=== PATIENT | female | born 1950 | race Caucasian/White ===

== ENCOUNTER 2018-05-07 16:05 | Emergency (ER) | payer OTHER ==
[~2018-05-07] VITALS: Ht 172.7 cm; Wt 77.1 kg
[2018-05-07] MEDS ORDERED: CELEXA20 MG PO (16:19)
[2018-05-07] MEDS ORDERED: NEURONTIN 300300 M1 PO (16:52)
[2018-05-07 16:55] LABS: ABSOLUTE NEUTROPHILS 4.3 thou/uL (1.4-8.2); BASOPHILS 0.6 % (0.0-2.0); EOSINOPHILS 2.6 % (0.0-3.0); HEMATOCRIT 38.5 % (37.0-47.0); HEMOGLOBIN 13.2 gm/dL (12.0-15.0); LYMPHOCYTES 19.9 % (24.0-44.0); MCH 32.4 pg (26.0-34.0); MCHC 34.2 g/dL (28.0-37.0); MCV 94.7 fL (80.0-100.0); MONOCYTES 7.9 % (1.0-8.0); RBC 4.07 mil/uL (4.20-5.00); RDW 14.2 % (10.5-14.5); WBC 6.2 thou/uL (4.0-11.0)
[2018-05-07 17:00] LABS: ANION GAP 10 mmol/L (7-16); BUN 15 mg/dL (7-18); CALCIUM 9.2 mg/dL (8.5-10.1); CHLORIDE 102 mmol/L (98-107); CO2 25 mmol/L (21-32); CREATININE 0.7 mg/dL (0.6-1.0); GLUCOSE 99 mg/dL (74-106); POTASSIUM 3.8 mmol/L (3.5-5.1); SODIUM 137 mmol/L (136-145)
[2018-05-07 17:08] LABS: ALBUMIN 3.7 g/dL (3.4-5.0); MAGNESIUM 2.1 mg/dL (1.8-2.4); SGOT 20 U/L (15-37); SGPT 12 U/L (30-65); TOTAL BILIRUBIN 0.6 mg/dL (<0.1-1.0); TOTAL PROTEIN 7.6 g/dL (6.4-8.2); TROPONIN-I <0.06 ng/mL (<0.06)
--- NOTE | 2018-05-07 17:18 | EKG ---
[address] [place] [address] ELECTROCARDIOGRAM REPORT Name: CARLO ORTEGA [facility] [id number] Admission: 05/07/18 Attend Phys: Discharge: Date of : 48 Report #: [id number] THIS REPORT FOR: //name// [facility] ED Test Date: 2018-05-07 Test Time: 16:36:01 Pat Name: CARLO ORTEGA Department: Room: Gender: F [employer]: HASMUKH : 1950 Requested By: Jair Disla Order Number: [id number] MD: Memo Dukes Measurements Intervals Barnes Rate: 55 P: 28 NE: 151 QRS: 5 QRSD: 123 T: 28 QT: 472 QTc: 452 Interpretive Statements Sinus rhythm Atrial premature complex Nonspecific intraventricular conduction delay No previous ECG available for comparison Electronically Signed On 05-07-2018 17:18:03 DRAW HAND by Memo Dukes [email or web address] <ELECTRONICALLY SIGNED> By: Memo Dukes MD 05/07/18 1718 1636 1636 Memo Dukes MD /GIAN
[2018-05-07 17:28] LABS: PLATELET COUNT 125 thou/uL (150-400)
[2018-05-07 17:29] LABS: LARGE PLATELETS FEW
[2018-05-07] MEDS ORDERED: ZOFRAN ODT4 MG DISSOLVE (17:44)
[2018-05-07 17:57] VITALS: BP 134/68
[2018-05-07 18:04] LABS: URINE BILIRUBIN NEGATIVE (Negative); URINE BLOOD NEGATIVE (Negative); URINE CLARITY CLEAR; URINE COLOR YELLOW; URINE GLUCOSE-RANDOM* NEGATIVE (Negative); URINE KETONES NEGATIVE (Negative); URINE LEUKOCYTES NEGATIVE (Negative); URINE NITRITE NEGATIVE (Negative); URINE PROTEIN (DIPSTICK) NEGATIVE (Negative); URINE SPECIFIC GRAVITY <= 1.005 (1.005-1.035); URINE UROBILINOGEN 0.2 E.U./dl (0.2-1.0)
== END 2018-05-07 18:00 | disposition home or self-care (01) ==
LOC: ER 16:05
PROVIDERS: Emergency Medicine
DX: R55 Syncope and collapse (principal); R42 Dizziness and giddiness; F32.9 Major depressive disorder, single episode, unspecified; F17.210 Nicotine dependence, cigarettes, uncomplicated